=== PATIENT | female | born 1945 | race Caucasian/White ===

== ENCOUNTER → 2017-06-02 | Outpatient (CLI) | payer MEDICARE, BC ==
[~2017-06-02] MED LIST: MIDRIN CAPSULE1 CA1 PO; TEGRETOL PO
--- NOTE | ~2017-06-02 | US37 ---
[facility] A Service of [facility] & [facility] RADIOLOGY TEXT RESULTS PATIENT: EBENEZER TO LOCATION: [facility] : 49 UNIT #: [id number] AGE: [address]: Amee Lucio MD SEX: F ORDER DR: [id number] [facility] [address] [place], [place] [address] [id number] O MR#: [id number] Acc #: [id number] NAME: EBENEZER TO : 1945 SEX: F STUDY DATE/TIME: 06/02/2017 14:16 UNIT: [facility] ROOM: STUDY DESCRIPTION: US Carotid W/Doppler Bilateral Attending Physician: Mitesh Lucio M.D. Referring Physician: Mitesh Lucio M.D. Ordering Physician: Mitesh Lucio M.D. Primary Care Physician: Rema Townsend M.D. MEDICAL IMAGING REPORT This report is preliminary unless electronic signature is present EXAM Bilateral carotid duplex date of examination 06/02/2017 HISTORY Dizziness x5 weeks, hypertension, hyperlipidemia, tobacco use. FINDINGS There is patent flow seen throughout the right common carotid, internal carotid, and external carotid arteries. The right carotid bifurcation has some mild atherosclerotic disease that is echogenic and irregular. The right common carotid artery peak velocity is 50 cm/sec. The right internal carotid artery peak velocity over end diastolic velocities are: Proximal 42/12 cm/sec, mid 51/15 cm/sec, distal 54/14 cm/sec. The right external carotid artery peak velocity is 73 cm/sec, and vertebral artery 27 cm/sec. The right ICA/CCA ratio is 1.0. There is patent flow seen throughout the left common carotid, internal carotid, and external carotid arteries. There is irregular, heterogeneous, and echogenic plaque seen in the left carotid bifurcation. The left common carotid artery peak velocity is 64 cm/sec. The left internal carotid artery peak systolic over end diastolic velocities are: Proximal 56/15 cm/sec, mid 39/12 cm/sec, distal 56/20 cm/sec. The left external carotid artery peak velocity is 81 cm/sec and vertebral artery 41 cm/sec. The left ICA/CCA ratio is 0.87. IMPRESSION 1. The right carotid artery has minimal atherosclerosis, which is not hemodynamically significant by duplex criteria (less than 50%). 2. The left carotid artery as minimal atherosclerosis, which is not hemodynamically significant by duplex criteria (less than 50%). 3. Vertebral flow is antegrade bilaterally. [facility] A Service of [facility] RADIOLOGY TEXT RESULTS PATIENT: EBENEZER TO LOCATION: [facility] #: [id number] : 49 UNIT #: [id number] AGE: [address]: Amee Lucio MD SEX: F ORDER DR: Dictated by... Trever Moreno M.D. THIS IS AN ELECTRONICALLY VERIFIED REPORT Trever Moreno M.D. at 06/03/2017 8:43 AM LILLIAM/omari TD: 06/02/2017 22:04 JOB #: [id number] MEDICAL IMAGING REPORT Page 1 of 1 COPY
== END | disposition home or self-care (01) ==
LOC: CECH 13:12
DX: R42 Dizziness and giddiness (principal); I25.10 Atherosclerotic heart disease of native coronary artery without angina pectoris; I35.1 Nonrheumatic aortic (valve) insufficiency; I34.0 Nonrheumatic mitral (valve) insufficiency; I36.1 Nonrheumatic tricuspid (valve) insufficiency; I35.8 Other nonrheumatic aortic valve disorders
CPT/HCPCS: 93306; 93880